=== PATIENT | male | born 1955 | race Caucasian/White ===

== ENCOUNTER 2020-08-30 14:44 | Emergency (ER) | payer MEDICARE ==
[~2020-08-30] VITALS: Ht 170.2 cm; Wt 62.3 kg
[2020-08-30] MEDS ORDERED: ondansetron/PF 4mg/2ml inj IV ONE (14:55)
[2020-08-30] MEDS ORDERED: normal saline 1000ML IV soln IVB ONE (14:55)
[2020-08-30 15:19] VITALS: BP 171/76
[2020-08-30] MEDS ORDERED: morphine 4 MG/ML inj SYRINge IV ONE (15:20)
[2020-08-30 15:45] LABS: BASOPHILS % (AUTO) 0.5 % (0-1); EOSINOPHILS # (AUTO) 0.1 X10'3 (0-0.9); EOSINOPHILS % (AUTO) 1.7 % (0-6); HEMATOCRIT 40.6 % (42.0-52.0); HEMOGLOBIN 14.1 g/dl (14.0-17.9); LYMPHOCYTES # (AUTO) 2.3 X10'3 (1.1-4.8); LYMPHOCYTES % (AUTO) 33.6 % (21-51); MEAN CORPUSCULAR HEMOGLOBIN 41.9 PG (27.0-31.0); MEAN CORPUSCULAR HGB CONC 34.6 g/dL (33.0-36.5); MEAN CORPUSCULAR VOLUME 121.1 FL (78-98); MEAN PLATELET VOLUME 8.2 FL (7.4-10.4); MONOCYTES # (AUTO) 0.5 X10'3 (0-0.9); MONOCYTES % (AUTO) 7.5 % (2-12); NEUTROPHILS # (AUTO) 3.8 X10'3 (1.8-7.7); NEUTROPHILS % (AUTO) 56.7 % (42-75); PLATELET COUNT 107 X10'3 (140-440); RED BLOOD COUNT 3.35 X10'6 (4.70-6.10); WHITE BLOOD COUNT 6.7 X10'3 (4.5-11.0)
[2020-08-30 16:04] LABS: ALANINE AMINOTRANSFERASE 37 U/L (12-78); ALBUMIN 3.2 G/DL (3.4-5.0); ALBUMIN/GLOBULIN RATIO 0.8 (1.1-1.5); ALKALINE PHOSPHATASE 127 IU/L (46-116); ANION GAP 10 (8-16); BILIRUBIN,TOTAL 0.9 MG/DL (0.1-1.0); BLOOD UREA NITROGEN 10 MG/DL (7-18); BUN/CREATININE RATIO 13.9 (5.4-32.0); CALCIUM 7.7 MG/DL (8.5-10.1); CHLORIDE 102 MMOL/L (99-107); CREATININE 0.72 MG/DL (0.60-1.10); ETHANOL 0.098 GM/DL (0.0-0.010); GLUCOSE 81 MG/DL (70-104); LIPASE 211 U/L (73-393); SODIUM 141 MMOL/L (135-145); TOTAL CARBON DIOXIDE 29.3 MMOL/L (24-32); TOTAL PROTEIN 7.2 G/DL (6.4-8.2); eGFR > 90 ML/MIN
[2020-08-30 16:05] LABS: ASPARTATE AMINO TRANSFERASE 56 U/L (10-37)
[2020-08-30 16:07] LABS: POTASSIUM 2.8 MMOL/L (3.5-5.1)
[2020-08-30] MEDS ORDERED: potassium Cl 20 mEq SR tablet PO STA (16:09)
[2020-08-30] MEDS ORDERED: potassium Cl 10 mEq/100mL bag IV ONE (16:10)
[2020-08-30 16:15] LABS: PLATELET ESTIMATE DECREASED
[2020-08-30 16:17] LABS: TARGET CELLS FEW
[2020-08-30] MEDS ORDERED: ONDA4TAB6 PO (16:22)
[2020-08-30] MEDS ORDERED: OXYC-145 PO (16:23)
[2020-08-30] MEDS ORDERED: POTA10TA10 PO (16:23)
[2020-08-30 16:49] LABS: CLARITY,URINE CLEAR (Clear); COLOR,URINE YELLOW (Yellow); GLUCOSE, URINE NEGATIVE (Neg); KETONES,URINE NEGATIVE (Neg); LEUKOCYTE ESTERASE ,URINE NEGATIVE (Neg); NITRITES, URINE NEGATIVE (Neg); OCCULT BLOOD,URINE NEGATIVE (Neg); PROTEIN,URINE TRACE mg/dl (Neg)
[2020-08-30 16:55] LABS: UA COLLECTION TYPE CLN CATCH MIDSTREAM
[2020-08-30 16:57] LABS: MUCUS STRANDS MANY /LPF (Neg); SQUAMOUS EPITHELIAL CELL,UR FEW /LPF (FEW)
[2020-08-30 16:58] LABS: BACTERIA,URINE FEW /HPF (Neg); RBC,URINE 0-2 /HPF (0-2); WBC,URINE 0-4 /HPF (0-4)
== END 2020-08-30 17:44 | disposition home or self-care (01) ==
LOC: ER 14:44
DX: K85.90 Acute pancreatitis without necrosis or infection, unspecified (principal); R10.31 Right lower quadrant pain; R10.11 Right upper quadrant pain; F10.29 Alcohol dependence with unspecified alcohol-induced disorder; E87.6 Hypokalemia; E86.0 Dehydration; Z88.0 Allergy status to penicillin; Z88.6 Allergy status to analgesic agent; Z79.899 Other long term (current) drug therapy
CPT/HCPCS: 36415; 71045; 74176; 80053; 80320; 81001; 83690; 85008; 85025; 93005; 96374; 96375; 99285; J2270; J2405; J3480; J7030; 96361